=== PATIENT | male | born 1950 | race Caucasian/White ===

== ENCOUNTER → 2024-05-25 | Outpatient (CLI) | payer SELFPAY ==
--- NOTE | 2024-05-25 13:10 | RAD_ITS ---
PROCEDURE: Lumbar spine radiographs, four views 05/25/2024 REASON FOR EXAM: SPONDYLOSIS TECHNIQUE: Four views of the lumbar spine were obtained. COMPARISON: None available FINDINGS: Four views of the lumbar spine were obtained. The bones are osteopenic. Included portions of the pelvis and SI joints are intact. A few right pelvic phleboliths are present. No acute lumbar vertebral body fracture. Moderate multilevel degenerative disc and facet disease in the lumbar spine. Grade 1 anterolisthesis of L4 relative to L3 and L5. No definite pars defects. RAD/L/S Spine Min 4 Views IMPRESSION: Osteopenia. No acute bony abnormality of the lumbar spine. Moderate multilevel degenerative disc and facet disease in the lumbar spine. I f there is persistent pain or clinical concern, follow-up MRI evaluation may be considered. Reading Location: [facility]
--- NOTE | 2024-05-25 13:10 | RAD_ITS ---
PROCEDURE: CERV SPINE 4 OR 5 VIEWS 05/25/2024 REASON FOR EXAM: SPONDYLOSIS TECHNIQUE: 6 views of the cervical spine. COMPARISON: None FINDINGS: Vertebrae: Vertebral body heights are maintained. No finding of fracture. disc spaces: [id number] disc space narrowing and endplate change throughout the cervical spine. Multilevel [id number] neural foraminal stenosis. Right C3-4 and C4-5 neural foraminal stenosis. Alignment: Atlantoaxial relationships are maintained. Straightening of the typical cervical lordosis. No spondylolisthesis. soft tissues: No prevertebral soft tissue swelling. RAD/Cerv Spine 4 or 5 Views IMPRESSION: Right C3-4 and C4-5 neural foraminal stenosis. MODERATE CERVICAL DEGENERATIVE CHANGES. Reading Location: [facility]
== END | disposition home or self-care (01) ==
PROVIDERS: Referring Provider Chiropractor Orthopedic; Visit Provider Chiropractor Orthopedic
DX: M99.01 Segmental and somatic dysfunction of cervical region (principal); M99.03 Segmental and somatic dysfunction of lumbar region; M47.812 Spondylosis without myelopathy or radiculopathy, cervical region; M47.816 Spondylosis without myelopathy or radiculopathy, lumbar region
CPT/HCPCS: 72050; 72110